=== PATIENT | female | born 1950 | race Hispanic/Latino ===

== ENCOUNTER → 2017-05-13 | Outpatient (CLI) | payer OTHER, MEDICARE ==
[~2017-05-13] MED LIST: IOPAMIDOL-370 75 ML VIAL IV ONE
== END | disposition home or self-care (01) ==
LOC: RAH 10:00
PROVIDERS: ATTEND Internal Medicine Gastroenterology
DX: K74.60 Unspecified cirrhosis of liver (principal); R93.3 Abnormal findings on diagnostic imaging of other parts of digestive tract
CPT/HCPCS: 74170; Q9967

== ENCOUNTER → 2017-09-22 | Outpatient (CLI) | payer OTHER, MEDICARE | END | disposition home or self-care (01) | LOC: RAH 08:56 | PROVIDERS: ATTEND Internal Medicine | DX: S99.922A Unspecified injury of left foot, initial encounter (principal); X58.XXXA Exposure to other specified factors, initial encounter; Y93.89 Activity, other specified; Y92.89 Other specified places as the place of occurrence of the external cause; Y99.8 Other external cause status | CPT/HCPCS: 73630 ==

== ENCOUNTER → 2017-09-29 | Outpatient (CLI) | payer OTHER, MEDICARE | END | disposition home or self-care (01) | LOC: RAH 07:37 | PROVIDERS: ATTEND Internal Medicine Gastroenterology | DX: K64.9 Unspecified hemorrhoids (principal) | CPT/HCPCS: 76700; 93975 ==

== ENCOUNTER 2020-07-21 04:14 | Observation (INO) | payer OTHER, MEDICARE ==
[2020-07-21 04:54] LABS: BASOPHILS % (AUTO) 1.1 % (0.0-5.0); EOSINOPHILS % (AUTO) 5.9 % (0.0-8.0); HEMATOCRIT 30.5 % (36-48); LYMPHOCYTES % (AUTO) 17.3 % (21.0-51.0); MEAN CORPUSCULAR HEMOGLOBIN 31.6 pg (27.0-33.0); MEAN CORPUSCULAR HGB CONC 36.7 g/dL (32.0-36.0); MEAN CORPUSCULAR VOLUME 86.2 fL (79-99); MONOCYTES % (AUTO) 13.2 % (3.0-13.0); NEUTROPHILS % (AUTO) 55.7 % (40.0-77.0); PLATELET COUNT (AUTO) 126 K/uL (130-400); RED BLOOD CELL COUNT(AUTO) 3.54 MIL/uL (4.00-5.50); RED CELL DISTRIBUTION WIDTH 21.7 % (11.0-15.5); WHITE BLOOD COUNT (AUTO) 12.8 K/uL (4.8-10.8)
[2020-07-21 05:05] LABS: INR 2.08 (0.85-1.15); PROTHROMBIN TIME 21.2 SEC (9.6-11.6)
[2020-07-21 05:07] LABS: PARTIAL THROMBOPLASTIN TIME 47.2 SEC (26.3-35.5)
[2020-07-21 05:36] LABS: ALBUMIN 2.3 g/dL (3.5-5.0); CREATININE 1.7 mg/dL (0.5-1.5); MAGNESIUM 2.5 mg/dL (1.80-2.40); PHOSPHORUS 3.2 mg/dL (2.5-4.9); POTASSIUM 3.4 mmol/L (3.5-5.1); TOTAL PROTEIN, SERUM 5.9 g/dL (6.0-8.3)
[2020-07-21 05:40] LABS: BILIRUBIN,DIRECT 18.3 mg/dL (0.0-0.3); BILIRUBIN,TOTAL 26.5 mg/dL (0.2-1.0)
[2020-07-21 05:59] LABS: B-TYPE NATRIURETIC PEPTIDE 379 pg/mL (0-100)
[2020-07-21] MEDS ORDERED: ZOSYN 3.375GM+NS 50ML 50 ML IV ONE (06:19)
[2020-07-21 07:04] LABS: APPEARANCE,URINE SL CLOUDY (CLEAR); BILIRUBIN,URINE LARGE (NEGATIVE); GLUCOSE, URINE (UA) 100 mg/dL (NEGATIVE); KETONES,URINE 5 mg/dL (NEGATIVE); LEUKOCYTE ESTERASE ,URINE TRACE (NEGATIVE); NITRATE,URINE POSITIVE (NEGATIVE); OCCULT BLOOD,URINE NEGATIVE (NEGATIVE); PH,URINE 6.5 (5.0-8.0); PROTEIN,URINE TRACE mg/dL (NEGATIVE)
[2020-07-21 07:08] LABS: COLOR,URINE AMBER (YELLOW)
[2020-07-21 07:31] LABS: BACTERIA,URINE Few /HPF (None Seen); MUCUS,URINE Few LPF (None Seen); RBC,URINE 0-1 /HPF (0-1); SQUAMOUS EPITHELIAL CELL,UR Moderate /HPF (0-2)
[2020-07-21] MEDS ORDERED: CEFTRIAXONE SODIUM 1 GM ONE (08:47)
[2020-07-21] MEDS ORDERED: FUROSEMIDE 10 MG/ML 4ML VIAL ONE (08:47)
[2020-07-24] MEDS ORDERED: ADENOSINE 3 MG/ML 2ML VIAL IV ONE (03:55)
== END 2020-07-21 15:18 | disposition home or self-care (01) ==
LOC: EDH 04:14 → EDHIP 07:58
PROVIDERS: ADMIT Internal Medicine Hematology & Oncology; ATTEND Internal Medicine Hematology & Oncology
DX: K72.90 Hepatic failure, unspecified without coma (principal); N39.0 Urinary tract infection, site not specified; K74.60 Unspecified cirrhosis of liver; Z85.05 Personal history of malignant neoplasm of liver; Z87.19 Personal history of other diseases of the digestive system; Z88.3 Allergy status to other anti-infective agents; Z88.5 Allergy status to narcotic agent
CPT/HCPCS: 36415; 71045; 80048; 80076; 81001; 83605 ×2; 83690; 83735; 83880; 84100; 84145; 84484; 85025; 85610; 85730; 87040 ×2; 87077 ×2; 87088; 87186 ×2; 93005; 99285; G0378 ×7; J0696; J1940; J2543